=== PATIENT | male | born 1935 | race Caucasian/White ===

== ENCOUNTER 2017-10-14 14:58 | Emergency (ER) | payer MEDICARE, OTHER | END 2017-10-14 16:05 | disposition home or self-care (01) | LOC: BURERS 14:58 | DX: H61.21 Impacted cerumen, right ear (principal); E78.5 Hyperlipidemia, unspecified; I10 Essential (primary) hypertension; F03.90 Unspecified dementia, unspecified severity, without behavioral disturbance, psychotic disturbance, mood disturbance, and anxiety; Z87.891 Personal history of nicotine dependence | CPT/HCPCS: 69209 ==

== ENCOUNTER 2017-10-18 13:13 | Emergency (ER) | payer MEDICARE, OTHER | END 2017-10-18 13:45 | disposition home or self-care (01) | LOC: BURERS 13:13 | DX: H61.23 Impacted cerumen, bilateral (principal); E78.5 Hyperlipidemia, unspecified; I10 Essential (primary) hypertension; F03.90 Unspecified dementia, unspecified severity, without behavioral disturbance, psychotic disturbance, mood disturbance, and anxiety; Z85.038 Personal history of other malignant neoplasm of large intestine; Z87.891 Personal history of nicotine dependence | CPT/HCPCS: 99282 ==

== ENCOUNTER 2020-04-22 08:13 | Emergency (ER) | payer MEDICARE, OTHER ==
[2020-04-22] MEDS ORDERED: Ondansetron PF 4 MG/2 ML Vial ONE (09:15)
[2020-04-22] MEDS ORDERED: Fentanyl 100 MCG/2 ML VIAL ONE (09:15)
[2020-04-22 09:31] LABS: #Basophils 0.1 thou/uL (0.0-0.2); #Eosinphils 0.1 thou/uL (0.0-0.7); #Lymphocytes 0.9 thou/uL (1.20-3.40); #Monocytes 0.4 thou/uL (0.11-0.59); #Neutrophils 7.6 thou/uL (1.40-6.50); %Basophils 0.6 % (0.0-1.0); %Lymphocytes 9.8 % (21.0-51.0); %Monocytes 4.3 % (0.0-10.0); %Neutrophils 84.3 % (42.0-75.0); Mean Corpuscular HGB CONC 30.1 g/dL (32.0-36.0); Mean Corpuscular Hemoglobin 29.4 pg (27.0-31.0); Mean Corpuscular Volume 97.6 fL (78.0-98.0); Mean Platelet Volume 8.1 fL (7.4-10.4); Platelet Count 132 thou/uL (130-400); RBC Distribution Width 13.2 % (11.5-14.5); Red Blood Cell (RBC) Count 5.12 mill/uL (4.70-6.10)
[2020-04-22 09:37] LABS: INR-International Normal Ratio 1.2
[2020-04-22 09:47] LABS: ALT (SGPT) 16 U/L (8-55); AST (SGOT) 21 U/L (5-34); Albumin 4.2 g/dL (3.4-4.8); Alkaline Phosphatase 137 U/L (40-110); Anion Gap 16 mmol/L (10-20); BUN (Urea Nitrogen) 23 mg/dL (8.4-25.7); Bilirubin, Total 0.7 mg/dL (0.2-1.2); Calc. Creatinine Clearance 0 mL/min (70-130); Calcium 9.3 mg/dL (7.8-10.44); Carbon Dioxide 25 mmol/L (23-31); Chloride 105 mmol/L (98-107); Estimated GFR-MDRD 34; Globulin 2.7 g/dL (2.4-3.5); Glucose 122 mg/dL (83-110); Potassium 4.3 mmol/L (3.5-5.1); Protein, Total 6.9 g/dL (5.8-8.1); Sodium 142 mmol/L (136-145)
[2020-04-22] MEDS ORDERED: Adacel (T-DAP) 0.5 ML SYRINGE ONE (09:47)
[2020-04-22] MEDS ORDERED: Bacitracin 1 PK ONE (09:47)
--- NOTE | 2020-04-22 14:30 | RAD ---
PORTABLE CHEST: Date: 04/22/2020 An AP portable film at 0905 hours is compared with an 05/13/2016 study. The heart is mildly enlarged, but there is no congestive change or pleural effusion. 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 The lungs are clear. IMPRESSION: Minimal cardiomegaly, but no acute finding. POS: HOME
--- NOTE | 2020-04-22 14:31 | RAD ---
LEFT HIP 2 VIEWS: DATE: 04/22/2020. FINDINGS: There appears to be a fracture at the base of the femoral neck with slight angulation of the distal f ragment. There is no dislocation of the femoral head. The hip joint space is normal. Arterial calc ifications are seen in femoral arteries. IMPRESSION: Fracture at the base of the femoral neck. POS: HOME
== END 2020-04-22 10:30 | disposition short-term general hospital (02) ==
LOC: BURERS 08:13
DX: S72.042A Displaced fracture of base of neck of left femur, initial encounter for closed fracture (principal); S72.142A Displaced intertrochanteric fracture of left femur, initial encounter for closed fracture; N40.0 Benign prostatic hyperplasia without lower urinary tract symptoms; E78.5 Hyperlipidemia, unspecified; I10 Essential (primary) hypertension; Z87.891 Personal history of nicotine dependence; Z79.82 Long term (current) use of aspirin; Z79.899 Other long term (current) drug therapy; W18.30XA Fall on same level, unspecified, initial encounter
CPT/HCPCS: 71045; 80053; 85025; 85610; 90471; 90715; 93005; 96374; 96375; J2405; J3010